=== PATIENT | female | born 1985 | race Caucasian/White ===

== ENCOUNTER 2016-05-08 19:26 | Emergency (ER) | payer MEDICAID ==
--- NOTE | 2016-05-19 07:17 | ER ---
ADMIT: 05/08/2016 RM/LOC: ER [facility] MR#: [id number] [address] [facility] [address] [place], [place] [address] [place] [address] Emergency Room Report SEX: F AGE: 30 : 1985 DATE: 05/08/2016 ADDENDUM: See T-sheet for complete H and P. A 30-year-old female who comes in with left flank pain into her left abdomen. She does have a history of renal stone x1 about 8 years ago. She does feel just like that. On her physical exam, she does appear uncomfortable. She has some tenderness in her left flank and her left lower abdomen. She states there is no way she is and is on her period right now. She does have a history of narcotic abuse and she does not want narcotics at this time. We did get an IV started and she received a liter of normal saline, 30 mg of Toradol IV. She received Ativan 1 mg IV x2, followed by Valium 5 mg p.o. Her symptoms were improved in the ER. CBC was unremarkable other than hemoglobin of 11.7. Chemistries were normal other than a glucose of 68, and urine was negative. CT renal colic showed 4 mm nonobstructing stone, otherwise unremarkable. She is discharged home with a diagnosis of nonobstructing nephrolithiasis and flank pain. Murphy Ross MD/ john paul JOB #: [id number] CC: Murphy Ross MD, Attending Physician Dashawn Clarke MD, Family Physician
== END 2016-05-08 23:48 | disposition home or self-care (01) ==
LOC: ER 19:26
DX: N20.0 Calculus of kidney (principal); R10.9 Unspecified abdominal pain; G40.909 Epilepsy, unspecified, not intractable, without status epilepticus; F17.210 Nicotine dependence, cigarettes, uncomplicated; Z86.59 Personal history of other mental and behavioral disorders; Z88.1 Allergy status to other antibiotic agents; Z88.5 Allergy status to narcotic agent; Z88.8 Allergy status to other drugs, medicaments and biological substances; Z79.899 Other long term (current) drug therapy

== ENCOUNTER 2016-05-17 17:16 | Emergency (ER) | payer MEDICAID ==
--- NOTE | 2016-05-21 10:35 | NUR ---
Received SAD person referral. Per chart, pt is living at the Crisis Center. Message left for pt with a Crisis Center advocate.
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
== END 2016-05-17 19:30 | disposition home or self-care (01) ==
LOC: ER 17:16
DX: G40.909 Epilepsy, unspecified, not intractable, without status epilepticus (principal); F17.210 Nicotine dependence, cigarettes, uncomplicated; Z88.1 Allergy status to other antibiotic agents; Z88.5 Allergy status to narcotic agent; Z79.899 Other long term (current) drug therapy

== ENCOUNTER 2016-05-20 22:57 | Emergency (ER) | payer MEDICAID ==
--- NOTE | 2016-06-09 21:33 | ER ---
ADMIT: 05/20/2016 RM/LOC: [facility] MR#: [id number] [address] [address] [place] [address] Emergency Room Report SEX: F AGE: 30 : 1985 DATE: 05/20/2016 A 30-year-old who was brought to the emergency department with concerns about possible seizure. The patient does have a history of seizures and is on Keppra. See T-sheet for remainder of history and physical, which was unremarkable. CBC was normal. Chemistries significant for glucose of 105, prolactin level was 21.9, which was within the normal range, not indicative of a seizure. DIAGNOSIS: Anxiety. Espinoza Sanford MD/ john paul JOB #: [id number] CC: Isac Joseph MD, Attending Physician Olga Lidia Drake MD, Family Physician
== END 2016-05-21 00:15 | disposition home or self-care (01) ==
LOC: ER 22:57
DX: R56.9 Unspecified convulsions (principal); F41.9 Anxiety disorder, unspecified; F17.210 Nicotine dependence, cigarettes, uncomplicated; Z88.1 Allergy status to other antibiotic agents; Z88.5 Allergy status to narcotic agent; Z88.8 Allergy status to other drugs, medicaments and biological substances; Z79.899 Other long term (current) drug therapy

== ENCOUNTER 2016-05-23 20:45 | Emergency (ER) | payer MEDICAID ==
--- NOTE | 2016-05-31 18:52 | ER ---
ADMIT: 05/23/2016 RM/LOC: ER [facility] MR#: [id number] [address] [address] [place] [address] Emergency Room Report SEX: F AGE: 30 : 1985 DATE: 05/23/2016 ADDENDUM: This patient comes into the ER because she had a seizure today, 3 separate episodes. She was seen in the ER on 2 previous occasions for having seizures. She takes Keppra. She has a headache and feels like she is postictal. During her time here in the ER, she keeps saying she feels like she is going to have another seizure. On physical exam, she is alert and appropriate and answers questions appropriately, does not seem to be postictal. Her only complaint is a headache. I did review her last 2 visits in the ER during this week. We will have her follow up with her neurologist and continue with her Keppra. Please see my T-sheet. TODD Doss / Yovanny Klein MD / john paul JOB #: [id number] CC: Yovanny Klein MD, Attending Physician Kan Garcia MD, Family Physician
== END 2016-05-23 22:20 | disposition home or self-care (01) ==
LOC: ER 20:45
DX: G40.909 Epilepsy, unspecified, not intractable, without status epilepticus (principal); R51 Headache; F17.210 Nicotine dependence, cigarettes, uncomplicated; Z86.59 Personal history of other mental and behavioral disorders; Z88.5 Allergy status to narcotic agent; Z88.8 Allergy status to other drugs, medicaments and biological substances; Z79.899 Other long term (current) drug therapy

== ENCOUNTER 2016-05-24 23:10 | Emergency (ER) | payer MEDICAID ==
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
== END 2016-05-25 06:00 ==
LOC: ER 23:10
DX: T74.21XA Adult sexual abuse, confirmed, initial encounter (principal); G40.909 Epilepsy, unspecified, not intractable, without status epilepticus; F17.200 Nicotine dependence, unspecified, uncomplicated

== ENCOUNTER 2016-06-06 23:16 | Emergency (ER) | payer MEDICAID ==
--- NOTE | 2016-06-09 04:11 | ER ---
ADMIT: 06/06/2016 RM/LOC: [facility] MR#: [id number] [address] [place] [address] [place] [address] Emergency Room Report SEX: F AGE: 30 : 1985 DATE: 06/06/2016 CHIEF COMPLAINT: Possible seizure activity. HISTORY OF PRESENT ILLNESS: The patient is a 30-year-old female, who has a diagnosis of seizures, who takes gabapentin and Keppra for those, comes in complaining of feeling a little funny like she was about to have a seizure earlier. She denies any loss of consciousness with this, just felt like she was feeling somewhat anxious, got a little shaky and became somewhat nauseous. Those symptoms were very short-lived, but she did call EMS and was brought in. There are completely resolved at this time. She denies any chest pain, shortness of breath, abdominal pain. She has no current nausea and has no numbness, tingling, weakness in any extremities and no visual changes at this time. She states she is feeling back at her baseline. PAST MEDICAL HISTORY: Significant for seizure disorder. MEDICATIONS: See nurse's note. ALLERGIES: SEE NURSE'S NOTE. SOCIAL HISTORY: Smokes half pack a day. Denies any current drug use or alcohol use. PHYSICAL EXAMINATION: VITAL SIGNS: Stable. HEENT: Head is atraumatic. Pupils are equal, round, reactive to light. Extraocular muscles are intact. NECK: Supple. There is no meningismus. HEART: Regular rate and rhythm. LUNGS: Clear to auscultation. ABDOMEN: Soft, nontender, nondistended. ADMIT: 06/06/2016 RM/LOC: [facility] MR#: [id number] [address] [place], [place] [address] [address] [place] [address] Emergency Room Report SEX: F AGE: 30 : 1985 EXTREMITIES: Motor and sensation are intact in all 4 extremities. She has no skin lesions or rashes. She has no pulse deficit in any extremity. MEDICAL DECISION MAKING: Based on my examination, I did not believe the patient warrants further workup at this time as this did not sound like she actually had a seizure. She is actually back at her baseline. She admits that she was somewhat anxious earlier and this could be her anxiety. She did have nausea, which has also completely resolved. The patient will be discharged home in stable condition with the diagnoses of nausea and anxiety to follow up with her regular physician or if she is still here in town, she could follow up with Dr. Kelley, who is on for city call. She is told she can return to the ER for any concerning symptoms. Murphy Ross MD/ john paul JOB #: [id number] CC: Murphy Ross MD, Attending Physician Ramakrishna Kelley MD, Family Physician
== END 2016-06-07 00:20 | disposition home or self-care (01) ==
LOC: ER 23:16
DX: F41.9 Anxiety disorder, unspecified (principal); R11.0 Nausea; G40.909 Epilepsy, unspecified, not intractable, without status epilepticus; F17.210 Nicotine dependence, cigarettes, uncomplicated; Z79.899 Other long term (current) drug therapy

== ENCOUNTER 2016-06-07 21:50 | Emergency (ER) | payer MEDICAID ==
--- NOTE | 2016-06-11 11:27 | ER ---
ADMIT: 06/07/2016 RM/LOC: ER [facility] MR#: [id number] [address] [address] [place] [address] Emergency Room Report SEX: F AGE: 30 : 1985 DATE: 06/07/2016 CHIEF COMPLAINT: Syncope. HISTORY OF PRESENT ILLNESS: This is a 30-year-old female, who presents after a syncopal episode at her NA meeting. The patient states she got up to go to the coffee pot when she felt faint, her vision went white, and she fell to the ground. She said she awoke and the people surrounding her thought she may have had a seizure. They told her that she did not have a seizure that she just fell down. She was awake and alert after becoming supine. States prior to the episode, she felt a little lightheaded and had a racing heart and some chest palpitations. Denies any pain at this time. No chest pain, shortness of breath, nausea, weakness, lightheadedness, or dizziness. She does state she is currently having some heavy bleeding with her menses. She has been passing some heavy clots. She admits to being sexually active. It is unknown if she is . She does have some left lower quadrant pain. She has a past medical history of a seizure disorder and anemia. COURSE IN THE EMERGENCY ROOM: The patient was seen and examined. She is afebrile and nontoxic. Pupils were equal and reactive. Heart is regular rate and rhythm. Chest is clear. No wheezes or rhonchi. Abdomen does have some tenderness in the left lower quadrant. She does state that she has a known ovarian cyst that causes her trouble especially when she is menstruating. Did get a urine preg as well as a clean-catch UA on her negative for any infection. Urine preg was negative. IMPRESSION: Syncopal episode likely vasovagal. DISPOSITION: The patient was instructed to increase her fluids as tolerated. Continue all of her home medications. Activity as tolerated. Return with worsening signs or symptoms. Follow up with Dr. Vuong as needed. Questions sought and answered to the best of my ability and to the patient's satisfaction. Discharged in stable condition. TODD Lazaro / Murphy Ross MD / john paul JOB #: [id number] CC: Murphy Ross MD, Attending Physician Rehan Vuong MD, Family Physician
== END 2016-06-07 23:50 | disposition home or self-care (01) ==
LOC: ER 21:50
DX: R55 Syncope and collapse (principal); D64.9 Anemia, unspecified; F17.210 Nicotine dependence, cigarettes, uncomplicated; Z88.1 Allergy status to other antibiotic agents; Z90.49 Acquired absence of other specified parts of digestive tract

== ENCOUNTER 2016-06-21 18:31 | Emergency (ER) | payer MEDICAID ==
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
== END 2016-06-21 19:13 | disposition home or self-care (01) ==
LOC: ER 18:31
DX: G40.909 Epilepsy, unspecified, not intractable, without status epilepticus (principal); F43.9 Reaction to severe stress, unspecified; D64.9 Anemia, unspecified; F17.210 Nicotine dependence, cigarettes, uncomplicated; Z90.49 Acquired absence of other specified parts of digestive tract

== ENCOUNTER 2016-06-23 14:00 | Emergency (ER) | payer MEDICAID ==
--- NOTE | 2016-07-04 14:39 | ER ---
ADMIT: 06/23/2016 RM/LOC: ER [facility] MR#: [id number] [address] [address] [place] [address] Emergency Room Report SEX: F AGE: 30 : 1985 DATE: 06/23/2016 ADDENDUM: CHIEF COMPLAINT: Right lower quadrant pain. HISTORY OF PRESENT ILLNESS: This is a 30-year-old female who had sudden onset of right lower quadrant pain at a meeting that she was at between noon and 1, it was so extreme that she called 911. By the time she gets here, she still is in extreme pain, rolling around in bed. She was initially given Toradol which she had allergic reaction to, then 50 of Benadryl. While she has been here, her pain has actually completely resolved. I told her differential would be ovarian cyst or kidney stone or could be early appendicitis. Since her pain is completely resolved, I told her the odds for having appendicitis are very low. I am discharging her home and she is okay with that. She is to return to the ER if her symptoms return. CLINICAL IMPRESSION: 1. Right lower quadrant pain. 2. Allergic reaction to Toradol. TODD Hodgson / Espinoza Sanford MD / jonasl JOB #: [id number] CC: Espinoza Sanford MD, Attending Physician
== END 2016-06-23 15:50 | disposition home or self-care (01) ==
LOC: ER 14:00
DX: T39.8X5A Adverse effect of other nonopioid analgesics and antipyretics, not elsewhere classified, initial encounter (principal); R10.31 Right lower quadrant pain; F32.9 Major depressive disorder, single episode, unspecified; F41.9 Anxiety disorder, unspecified; F17.210 Nicotine dependence, cigarettes, uncomplicated; R56.9 Unspecified convulsions; Z90.49 Acquired absence of other specified parts of digestive tract; Z88.1 Allergy status to other antibiotic agents; Z88.5 Allergy status to narcotic agent; Z88.8 Allergy status to other drugs, medicaments and biological substances; Z79.899 Other long term (current) drug therapy; Y92.9 Unspecified place or not applicable